=== PATIENT | female | born 1995 | race Caucasian/White ===

== ENCOUNTER 2020-07-16 12:50 | Outpatient (REF) | payer OTHER, SELFPAY ==
[2020-07-17 01:12] LABS: CT PCR NOT DETECTED (Not Detect.); NG PCR NOT DETECTED (Not Detect.)
[2020-07-17 09:49] LABS: BV Int Neg Control Negative (Negative); BV Int Pos Control Positive (Positive)
[2020-07-24 18:17] LABS: HPV mRNA E6/E7 Detected (Not Detected)
== END 2020-07-16 12:51 | disposition home or self-care (01) ==
LOC: HO.LAB 12:50
PROVIDERS: Visit Provider Obstetrics & Gynecology
DX: N93.9 Abnormal uterine and vaginal bleeding, unspecified (principal); E28.2 Polycystic ovarian syndrome
CPT/HCPCS: 87480; 87491; 87510; 87591; 87624; 87660; 88141; 88142; 99203

== ENCOUNTER 2020-07-17 08:37 | Outpatient (REF) | payer OTHER, SELFPAY ==
[2020-07-17 09:27] LABS: MANUAL DIFF FLAG NO
[2020-07-17 09:30] LABS: Basophils Absolute Auto 0.1 X10*3/uL (0.0-0.2); Eosinophils Absolute Auto 0.2 X10*3/uL (0.0-0.4); Eosinophils Percent Auto 2.8 % (0-4); Hematocrit 43.7 % (37-47); Hemoglobin 13.7 g/dl (12.0-16.0); Imm Gran Abs Auto 0.03 X10*3/uL (0.00-0.03); Imm Gran Pct Auto 0.4 % (0.0-0.4); Lymphocytes Absolute Auto 1.8 X10*3/uL (1.2-4.9); Lymphocytes Percent Auto 22.9 % (20-40); Mean Corpuscular HGB Conc 31.4 g/dl (31.0-35.0); Mean Corpuscular Volume 89.2 fL (80-98); Mean Platelet Volume 12.1 fL (9.4-12.3); Monocytes Absolute Auto 0.6 X10*3/uL (0.1-1.2); Monocytes Percent Auto 8.1 % (2-11); Neutrophils Percent Auto 64.8 % (45-73); Platelet Count 229 X10*3/uL (160-400); Red Cell Distribution Width 12.7 % (11.0-16.0); White Blood Count 7.7 X10*3/uL (4.8-10.8)
[2020-07-17 09:47] LABS: Glucose Fasting 98 mg/dL (60-99)
[2020-07-17 09:56] LABS: Cholesterol 167 mg/dL; HDL Cholesterol 43 mg/dL; LDL Cholesterol Calculated 99 mg/dl; Triglycerides 128 mg/dL
[2020-07-17 10:15] LABS: TSH reflex Free T4 1.07 mIU/mL (0.32-4.0)
[2020-07-17 11:01] LABS: Glucose 1 Hour 189 mg/dL
[2020-07-17 12:16] LABS: Glucose 2 Hour 145 mg/dL
[2020-07-19 18:37] LABS: Prolactin 7.2 ng/mL
[2020-07-23 01:17] LABS: 17 OH Pregnenolone, LC/MS 117 ng/dL
[2020-07-25 16:22] LABS: Testosterone, Free 8.9 pg/mL (0.1-6.4); Testosterone, Total 38 ng/dL (2-45)
== END 2020-07-17 08:38 | disposition home or self-care (01) ==
LOC: HO.LAB 08:37
PROVIDERS: Visit Provider Obstetrics & Gynecology
DX: E28.2 Polycystic ovarian syndrome (principal)
CPT/HCPCS: 36415; 80061; 84143; 84146; 84402; 84403; 84443; 85025

== ENCOUNTER → 2020-08-19 14:32 | Outpatient (BNVA) | payer OTHER, SELFPAY | PROVIDERS: Visit Provider Obstetrics & Gynecology | DX: N92.1 Excessive and frequent menstruation with irregular cycle (principal) | CPT/HCPCS: 99212 ==

== ENCOUNTER → 2020-09-09 11:34 | Outpatient (BNVA) | payer OTHER, SELFPAY | PROVIDERS: Visit Provider Obstetrics & Gynecology | DX: Z76.89 Persons encountering health services in other specified circumstances (principal) ==

== ENCOUNTER → 2020-10-21 08:58 | Outpatient (BNVA) | payer OTHER, SELFPAY | PROVIDERS: Visit Provider Internal Medicine Endocrinology, Diabetes & Metabolism | DX: E66.01 Morbid (severe) obesity due to excess calories (principal); R73.09 Other abnormal glucose; E28.1 Androgen excess; Z68.44 Body mass index [BMI] 60.0-69.9, adult | CPT/HCPCS: 99202 ==

== ENCOUNTER 2020-10-23 07:32 | Outpatient (REF) | payer OTHER, SELFPAY ==
[2020-10-23 08:10] LABS: Hematocrit 31.7 % (37-47); Mean Corpuscular HGB Conc 28.4 g/dl (31.0-35.0); Mean Corpuscular Hemoglobin 21.2 pg (27.0-33.0); Mean Corpuscular Volume 74.6 fL (80-98); Mean Platelet Volume 11.4 fL (9.4-12.3); Platelet Count 329 X10*3/uL (160-400); Red Blood Count 4.25 X10*6/uL (4.20-5.50); Red Cell Distribution Width 16.9 % (11.0-16.0); White Blood Count 8.6 X10*3/uL (4.8-10.8)
[2020-10-23 08:28] LABS: Alanine Aminotransferase 16 U/L (0-31); Albumin Level 3.7 g/dL (3.5-5.0); Alkaline Phosphatase 72 U/L (39-117); Anion Gap 13 (12-20); Aspartate Amino Transferase 13 U/L (5-31); Bilirubin Total 0.2 mg/dL (0.0-1.0); Blood Urea Nitrogen 15 mg/dL (9-16); Calcium 8.2 mg/dL (8.4-10.2); Carbon Dioxide 22 mmol/L (22-29); Chloride 110 mmol/L (96-108); Estimated Glomerular Filt Rate > 60; Glucose Fasting 102 mg/dL (60-99); Potassium 4.7 mmol/L (3.3-5.1); Sodium 140 mmol/L (135-145); Total Protein 6.5 g/dL (6.5-8.0)
[2020-10-23 08:49] LABS: Free T4 (Free Thyroxine) 0.94 ng/dL (0.71-1.85); Thyroid Stimulating Hormone 0.71 uIU/mL (0.32-4.0); Vitamin D 25-OH Total 14.1 ng/mL (>30)
[2020-10-24 06:28] LABS: DHEA Sulfate 172 mcg/dL (18-391); Sex Hormone Binding Globulin 124 nmol/L (17-124)
[2020-10-24 07:37] LABS: Follicle Stimulating Hormone 1.5 mIU/mL; Lutenizing Hormone 1.1 mIU/mL
[2020-10-24 09:57] LABS: Insulin Level Total 31.4 uIU/mL
[2020-10-25 23:06] LABS: Adrenocorticotropic Hormone 15 pg/mL (6-50)
[2020-10-26 21:51] LABS: Estradiol Ultra Sensitive 28 pg/mL
[2020-10-27 16:07] LABS: Testosterone, Free 2.8 pg/mL (0.1-6.4); Testosterone, Total 36 ng/dL (2-45)
[2020-10-27 16:27] LABS: IGF-1 (Somatomedin C) 78 ng/mL (83-456); IGF-1 Z Score (Female) -1.9 SD (-2.0 - +2.0)
[2020-10-28 17:22] LABS: Androstenedione 62 ng/dL
[2020-10-30 21:27] LABS: 11-Deoxycortisol, LC/MS <20 ng/dL
[2020-10-31 18:47] LABS: Estrogen 299.2 pg/mL
== END 2020-10-23 07:33 | disposition home or self-care (01) ==
LOC: HO.10HDL 07:32
PROVIDERS: Visit Provider Internal Medicine Endocrinology, Diabetes & Metabolism
DX: E28.1 Androgen excess (principal); E66.01 Morbid (severe) obesity due to excess calories; Z68.44 Body mass index [BMI] 60.0-69.9, adult
CPT/HCPCS: 36415; 80053; 82024; 82157; 82306; 82533; 82627; 82634; 82670; 82672; 83001; 83002; 83498; 83525; 84270; 84305; 84402; 84403; 84439; 84443; 85027

== ENCOUNTER → 2020-10-25 15:52 | Outpatient (BNVA) | payer OTHER, SELFPAY | PROVIDERS: Visit Provider Obstetrics & Gynecology ==